=== PATIENT | male | born 1980 | race Caucasian/White ===

== ENCOUNTER 2017-09-15 11:37 | Emergency (ER) | payer OTHER ==
[~2017-09-15] VITALS: Ht 193 cm; Wt 110.2 kg
[2017-09-15 11:40] VITALS: BP 129/69; Ht 193 cm; Wt 110.2 kg
== END 2017-09-15 13:18 | disposition home or self-care (01) ==
LOC: ED 11:37
DX: S50.01XA Contusion of right elbow, initial encounter (principal); S30.0XXA Contusion of lower back and pelvis, initial encounter; Z88.0 Allergy status to penicillin; V03.99XA Pedestrian with other conveyance injured in collision with car, pick-up truck or van, unspecified whether traffic or nontraffic accident, initial encounter; Y93.89 Activity, other specified; Y92.89 Other specified places as the place of occurrence of the external cause; Y99.8 Other external cause status